=== PATIENT | female | born 1960 | race Caucasian/White ===

== ENCOUNTER 2016-04-17 16:35 | Outpatient (CLI) | payer BC, OTHER | END 2016-04-17 16:36 | disposition home or self-care (01) | DX: E03.9 Hypothyroidism, unspecified (principal); R53.83 Other fatigue ==

== ENCOUNTER 2016-12-01 13:59 | Outpatient (CLI) | payer OTHER ==
--- NOTE | 2016-12-01 17:12 | XRAY Report ---
THREE VIEW RIGHT FOOT: 12/01/2016 CLINICAL INDICATION: Midfoot pain. AP, lateral, oblique views of the right foot demonstrate no evidence of fracture or dislocation. Mil d degenerative changes are seen in the first metatarsophalangeal joint. No radiopaque foreign body i s seen in the soft tissues. IMPRESSION: MILD OSTEOARTHRITIS OF THE FIRST METATARSOPHALANGEAL JOINT. JOB #: [id number] EXT JOB #:[id number]
== END 2016-12-01 14:00 | disposition home or self-care (01) ==
LOC: DI.N 13:59
PROVIDERS: ATTEND Physician Assistant
DX: M19.071 Primary osteoarthritis, right ankle and foot (principal)

== ENCOUNTER 2018-09-26 12:28 | Emergency (ER) | payer BC, OTHER ==
[2018-09-26] MEDS ORDERED: BUFFERED LIDOCAINE 10 ML SYRINGE SUBQ STA (12:38)
[2018-09-26 12:40] VITALS: BP 146/92
--- NOTE | 2018-09-26 12:40 | ED Physician Documentation ---
PD HPI UPPER EXT INJURY - Stated complaint Stated Complaint: THUMB INJURY - History obtained from History obtained from: Patient - History of Present Illness Location: Right (This is a 57-year-old woman who slipped on the stairs and injured her right thumb. She has some abrasion on the back but no other injuries. She is up-to-date on tetanus.) Review of Systems Constitutional: reports: Reviewed and negative Cardiac: reports: Reviewed and negative Respiratory: reports: Reviewed and negative PD PAST MEDICAL HISTORY - Past Medical History Endocrine/Autoimmune: HyPOthyroidism - Past Surgical History Past Surgical History: Yes - Present Medications Home Medications: Ambulatory Orders Medication Instructions Recorded Confirmed RX: Levothyroxine Sodium 50 mcg PO DAILY 06/13/14 06/13/14 RX: Trazodone HCl 50 mg PO DAILY 06/13/14 06/13/14 Cephalexin [Keflex] 500 mg PO Q6H #28 capsule 09/26/18 Hydrocodone/Acetaminophen 1 - 2 each PO Q6H PRN #14 tablet 09/26/18 [Hydrocodon-Acetaminophen 5-325] - Allergies Allergies/Adverse Reactions: Allergies Allergy/AdvReac Type Severity Reaction Status Date / Time No Known Drug Allergies Allergy Verified 09/26/18 12:40 - Social History Does the pt smoke?: No Smoking Status: Never smoker Does the pt drink ETOH?: Yes Does the pt have substance abuse?: No - Immunizations Immunizations are current?: Yes - POLST Patient has POLST: No PD ED PE NORMAL - Vitals Vital signs reviewed: Yes - General General: Alert and oriented X 3, No acute distress - Extremities Extremities: Other (She has obvious deformity of the thumb at the interphalangeal joint consistent with a dorsal dislocation, she cannot range it at all. She has normal sensation at the tip. There is an abrasion or laceration on the palmar side of the proximal Phalanx of that digit which she is hesitant to have me look at until she has numbed up.) - Neuro Neuro: Alert and oriented X 3, Normal speech Results - Vitals Vitals: Vital Signs - 24 hr 09/26/18 12:33 Temperature 36.8 C Heart Rate 88 Respiratory 18 Rate Blood Pressure 146/92 H O2 Saturation 96 Oxygen O2 Source Room air - Rads (name of study) R thumb XR Radiology: EMP read contemporaneously (No obvious fracture and read as negative, there was a small abnormality on the could be consistent with a tiny nondisplaced chip fracture at the interphalangeal joint and I am treating it as such.) Procedures - Reduction Body part reduced: Right (thumb IP joint) Fracture or dislocation: Dislocation Anesthesia: Digital block, Lidocaine (enter cc) (4ml, buffered) Reduction aftercare: Alignment improved PD MEDICAL DECISION MAKING - ED course ED course: After digital block the thumb was reduced and she was sent for an x-ray. Also looks like she had a little tiny puncture wound on the palmar surface of the interphalangeal joint which may represent an open joint/fracture. This was irrigated and she is placed on Keflex. Departure - Departure Disposition: 01 Home, Self Care Clinical Impression: Fracture dislocation of right thumb Condition: Good Record reviewed to determine appropriate education?: Yes Instructions: ED Fx Finger Open Follow-Up: [facility] [Provider Group] - Within 1 week Prescriptions: Cephalexin [Keflex] 500 mg PO Q6H #28 capsule Hydrocodone/Acetaminophen [Hydrocodon-Acetaminophen 5-325] 1 - 2 each PO Q6H PRN #14 tablet PRN Reason: pain Comments: Keep the splint on and dry until you follow-up with the orthopedics office, call them for an appointment today, the appointment which should be within a week to 10 days. Take the antibiotics until gone. Return for any signs of infection, including but not limited to increased pain, redness, swelling, drainage. Discharge Date/Time: 09/26/18 13:53
[2018-09-26] MEDS ORDERED: cephALEXin 250 MG CAPSULE PO STA (13:18)
--- NOTE | 2018-09-26 13:30 | XRAY Report ---
Reason: Right thumb injury, status post reduction of dislo Procedure Date: 09/26/2018 Accession Number: [id number] / [id number] Procedure: XR - Finger(s) RT CPT Code: FULL RESULT: EXAM: RIGHT FIRST DIGIT RADIOGRAPHY EXAM DATE: 09/26/2018 01:15 PM. CLINICAL HISTORY: Right thumb injury, status post reduction of dislo. COMPARISON: None. TECHNIQUE: 3 views. FINDINGS: Bones: Normal. No fracture or bone lesion. Joints: First metacarpocarpal joint space osteophyte, joint space narrowing, loose body, subchondral sclerosis. Soft Tissues: Normal. No soft tissue swelling. IMPRESSION: Anatomic alignment. DJD first HALFWAY joint RADIA
== END 2018-09-26 13:53 | disposition home or self-care (01) ==
LOC: ED 12:28
DX: S62.501A Fracture of unspecified phalanx of right thumb, initial encounter for closed fracture (principal); S63.124A Dislocation of interphalangeal joint of right thumb, initial encounter; S61.031A Puncture wound without foreign body of right thumb without damage to nail, initial encounter; W10.9XXA Fall (on) (from) unspecified stairs and steps, initial encounter
CPT/HCPCS: 73140; 99283; A9270

== ENCOUNTER 2021-01-24 18:09 | Outpatient (CLI) | payer BC, OTHER ==
--- NOTE | 2021-01-25 17:17 | XRAY Report ---
PROCEDURE: Knee 3 View LT INDICATIONS: L KNEE PX TECHNIQUE: 3 views of the left knee(s) were acquired. COMPARISON: None. FINDINGS: Bones: No fractures or dislocations. No suspicious bony lesions. There is medial joint space narro wing. Soft tissues: No joint effusion. No suspicious soft tissue calcifications. IMPRESSION: 1. Mild degenerative changes with medial joint space narrowing. 2. Suprapatellar joint effusion suggests possible internal derangement. Reviewed by: Phan Crowe on 01/25/2021 5:16 PM [facility] Approved by: Phan Crowe on 01/25/2021 5:16 PM [facility] Station ID: [id number]
== END 2021-01-24 23:59 | disposition home or self-care (01) ==
LOC: DI.N 18:09
PROVIDERS: ATTEND Physician Assistant Medical
DX: M17.12 Unilateral primary osteoarthritis, left knee (principal); M25.462 Effusion, left knee

== ENCOUNTER 2022-02-09 10:03 | Outpatient (CLI) | payer OTHER ==
--- NOTE | 2022-02-09 18:18 | XRAY Report ---
PROCEDURE: Chest 2 View X-Ray INDICATIONS: OTH SYMPTOMS AND SIGNS INVOLVING THE CIRC AND RESP TECHNIQUE: 2 views of the chest were acquired. COMPARISON: None FINDINGS: Surgical changes and devices: None. Lungs and pleura: No pleural effusions or pneumothorax. Lungs are clear. Mediastinum: Mediastinal contours are normal. Heart size is normal. Bones and chest wall: No suspicious bony abnormalities. Soft tissues appear unremarkable. IMPRESSION: Unremarkable two-view chest x-ray Reviewed by: Flavio Lomeli MD on 02/09/2022 5:17 PM [place] Approved by: Flavio Lomeli MD on 02/09/2022 5:17 PM [facility] [[email or web address]] Station ID: [id number]
== END 2022-02-09 10:04 | disposition home or self-care (01) ==
LOC: DI 10:03
PROVIDERS: ATTEND Physician Assistant
DX: R09.89 Other specified symptoms and signs involving the circulatory and respiratory systems (principal)

== ENCOUNTER 2023-03-19 15:46 | Outpatient (CLI) | payer OTHER ==
--- NOTE | 2023-03-20 16:23 | Mammography Report ---
BILATERAL DIGITAL SCREENING MAMMOGRAM 3D/2D: 03/19/2023 CLINICAL: Routine screening. Family history of breast cancer. Comparison is made to exams dated: 05/17/2017 mammogram and 09/16/2015 mammogram - [facility]. There are scattered areas of fibroglandular density in both breasts (category b / 25%-50% glandular t issue). No significant masses, calcifications, or other findings are seen in either breast. There has been no significant interval change. IMPRESSION: NEGATIVE There is no mammographic evidence of malignancy. A 1 year screening mammogram is recommended. Based on the Tyrer Cuzick model (a risk assessment model) the patient's lifetime risk is 10.7% and he r 10 year risk is 5.0%. According to the ACR, ACS, and NCCN guidelines, an annual breast MRI exam michael ng with mammogram is recommended if the patient's lifetime risk is 20% or greater. This exam was interpreted at Station ID: [id number]. NOTE: For mammograms, a report in lay terms will be sent to the patient. Approximately 15% of breast malignancies will not be visualized mammographically. In the management of a palpable breast mass, a negative mammogram must not discourage biopsy of a clinically suspicious lesion. Electronically Signed By: Guido brown/enrique:03/20/2023 08:53:15 letter sent: No_Letter ACR BI-RADS Category 1: Negative 3341F PARENCHYMAL PATTERN: (A) - The breast(s) demonstrate(s) scattered fibroglandular densities. BI-RADS CATEGORY: (1) - 1 Mammogram [id number] 1 year screening LATERALITY: (B)
== END 2023-03-19 15:47 | disposition home or self-care (01) ==
LOC: DI.N 15:46
DX: Z12.31 Encounter for screening mammogram for malignant neoplasm of breast (principal); Z80.3 Family history of malignant neoplasm of breast; R92.323 Mammographic fibroglandular density, bilateral breasts